=== PATIENT | male | born 2000 | race African-American/Black ===

== ENCOUNTER 2022-11-23 13:54 | Outpatient (CLI) | payer OTHER, SELFPAY ==
--- NOTE | ~2022-11-23 | US_ITS ---
EXAMINATION: US breast LT limited HISTORY: Palpable lump in the subareolar aspect of the left breast TECHNIQUE: Targeted ultrasound of the subareolar left breast is performed. FINDINGS: There is flame-shaped tissue in the subareolar aspect of the left breast, consistent with g ynecomastia. No suspicious cystic or solid mass is identified. IMPRESSION: Mild left gynecomastia. BI-RADS Category 2: Benign finding(s). Reviewed, dictated and finalized at location A.
== END 2022-11-23 13:55 | disposition home or self-care (01) ==
LOC: ANHIMG 13:56
PROVIDERS: PCP Family Medicine Adolescent Medicine; Visit Provider Nurse Practitioner Family
DX: N63.20 Unspecified lump in the left breast, unspecified quadrant (principal); N62 Hypertrophy of breast
CPT/HCPCS: 76642